=== PATIENT | female | born 1985 | race Caucasian/White ===

== ENCOUNTER 2020-07-18 21:55 | Observation (INO) | payer OTHER, BC ==
[~2020-07-18] VITALS: Ht 162.6 cm; Wt 58.4 kg
[2020-07-18 23:19] LABS: BASOPHILS ABSOLUTE AUTO 0.02 K/mm3 (0.00-0.23); BASOPHILS PERCENT AUTO 0 % (0-2); EOSINOPHILS ABSOLUTE AUTO 0.17 K/mm3 (0.00-0.68); EOSINOPHILS PERCENT AUTO 2 % (0-6); Hemoglobin 12.1 g/dL (11.5-16.0); IMMATURE GRAN ABSOLUTE AUTO 0.02 K/mm3 (0.00-0.10); IMMATURE GRAN PERCENT AUTO 0 % (0-1); LYMPHOCYTES PERCENT AUTO 19 % (21-46); MONOCYTES ABSOLUTE AUTO 0.79 K/mm3 (0.16-1.47); MONOCYTES PERCENT AUTO 10 % (4-13); Mean Corpuscular HGB 29.4 pg (26.0-34.0); Mean Corpuscular HGB Conc 33.6 g/dL (31.5-36.5); Mean Corpuscular Volume 88 fL (80-100); Mean Platelet Volume 10.7 fL (9.1-12.4); NEUTROPHILS ABSOLUTE AUTO 5.65 K/mm3 (1.96-9.15); NEUTROPHILS PERCENT AUTO 69 % (41-73); Platelet Count 197 K/mm3 (150-400); RDW Coefficient Variation 12.2 % (11.7-14.2); RDW Standard Deviation 39.3 fL (35.1-46.3); Red Blood Cell Count 4.11 M/mm3 (3.80-5.20); White Blood Cell Count 8.25 K/mm3 (4.00-11.30)
[2020-07-18 23:37] LABS: Alanine Aminotransfer (ALT/SGP 282 U/L (12-78); Albumin, Blood 3.9 g/dL (3.4-5.0); Albumin/Globulin Ratio 1.2 (0.8-1.8); Alk Phos 198 U/L (50-136); Anion Gap 6 mmol/L (6-16); Aspartate Aminotrans (AST/SGOT 177 U/L (12-37); Bilirubin, Total 1.1 mg/dL (0.1-1.0); Blood Urea Nitrogen 14 mg/dL (8-24); Bun/Creatinine Ratio 16.6 (12.0-20.0); CO2, Blood 26 mmol/L (21-32); Calcium, Blood 9.6 mg/dL (8.5-10.1); Chloride, Blood 106 mmol/L (98-108); Creatinine, Blood 0.84 mg/dL (0.40-1.00); Globulin, Blood 3.3 g/dL (2.2-4.0); Glomerular Filtration Rate >60 (60-); Glucose, Blood 107 mg/dL (70-99); Potassium, Blood 3.4 mmol/L (3.5-5.5); Sodium, Blood 138 mmol/L (136-145); Total Protein, Blood 7.2 g/dL (6.4-8.2)
[2020-07-18 23:46] LABS: Source, Urine Clean Catch
[2020-07-19 00:04] LABS: Blood, Urine Neg (Neg); Glucose Qualitative, Urine Neg (Neg); Ketones, Urine 2+ (Neg); Leukocyte Esterase, Urine 1+ (Neg); Nitrite, Urine Neg (Neg); Protein, Urine 2+ (Neg); Specific Gravity, Urine 1.025 (1.003-1.022); Urobilinogen, Urine 2+ (Normal)
[2020-07-19] MEDS ORDERED: GABA300 PO (00:09)
[2020-07-19] MEDS ORDERED: BUSP5 PO (00:09)
[2020-07-19] MEDS ORDERED: SEROQUEL100 MG PO (00:10)
[2020-07-19] MEDS ORDERED: IBUP400 PO (00:10)
[2020-07-19 00:11] LABS: Appearance, Urine Hazy (Clear); Bilirubin, Urine 1+ (Neg); Color, Urine Amber (P-Yellow)
[2020-07-19 00:21] LABS: Amorphous Light (0-Heavy); Bacteria Few /hpf; Mucus Light (0-Heavy); Red Blood Cells, Urine Not Seen /hpf (0-2); Squamous Epithelial Cells Not Seen /hpf (Few); White Blood Cells, Urine 0-2 /hpf (0-5)
[2020-07-19] MEDS ORDERED: BUPRENORPHINE HC2 MG SL (02:17)
[2020-07-19] MEDS ORDERED: ALBU90OI INH (02:18)
[2020-07-19] MEDS ORDERED: RIZATRIPTAN10 MG PO (02:21)
[2020-07-19 02:37] LABS: SARS-Cov-2 (COVID-19) PCR, MMC NEGATIVE (NEGATIVE)
--- NOTE | 2020-07-19 04:01 | NUR ---
SHIFT SUMMARY: MINOR IS A&OX4. VSS, NO ACUTE EVENTS SINCE ADMISSION EARLY THIS AM. SHE IS LYING IN BED WITH HER EYES CLOSED WITH EVEN, UNLABORED RESPIRATIONS. SHE IS NPO. IV TO R FOREARM PATENT. SHE IS ABLE TO MAKE HER NEEDS KNOWN. COVID AND URINE HCG NEGATIVE. CALL LIGHT IN REACH. WILL REPORT TO DAY SHIFT RN.
--- NOTE | 2020-07-19 10:51 | NUR ---
PT TO SURGERY AT APPROX 1020.
--- NOTE | 2020-07-19 14:18 | NUR ---
PT RETURNED TO UNIT FROM PACU AT APPROX. 1400. PT REPORTS PAIN AND NAUSEA AT THIS TIME. PT BEING TREATED PER EMAR.
--- NOTE | 2020-07-19 15:27 | NUR ---
PT TRANSFERED VIA [facility] TO [facility] AT APPROX 1500.
== END 2020-07-19 15:29 | disposition short-term general hospital (02) ==
LOC: ER 21:55 → SURS 21:56 → ER 07-19 01:13 → SURS 07-19 02:13
PROVIDERS: Emergency Medicine; ADMIT Surgery
DX: K80.67 Calculus of gallbladder and bile duct with acute and chronic cholecystitis with obstruction (principal); Z79.899 Other long term (current) drug therapy; Z20.822 Contact with and (suspected) exposure to COVID-19
CPT/HCPCS: 74300; 76705; 80053; 81001; 81025; 83605; 83690; 85025; 88304; 96365; 96374; 96375; 99285-25; A9270; C1729; G0378; J0295; J1100; J1170; J1610; J1885; J2250; J2405; J2550; J2704; J2710; J3010; J7120; U0004